=== PATIENT | male | born 1975 | race Caucasian/White ===

== ENCOUNTER 2021-08-25 11:50 | Outpatient (RCR) | payer OTHER, SELFPAY ==
[2021-08-25 12:27] LABS: INR 2.36 (0.91-1.10); Prothrombin Time 26.2 Seconds
[2021-09-01 17:55] LABS: INR 2.33 (0.91-1.10)
== END 2022-07-28 09:14 | disposition home or self-care (01) ==
LOC: LAB 11:50
DX: Z51.81 Encounter for therapeutic drug level monitoring (principal)
CPT/HCPCS: 36415; 85610